=== PATIENT | male | born 1950 | race Caucasian/White ===

== ENCOUNTER 2022-01-27 07:28 | Day surgery (SDC) | payer MEDICARE, BC ==
[~2022-01-27] VITALS: Ht 177.8 cm; Wt 96.5 kg
[~2022-01-27 07:28] MED LIST: ALEVE220 MG PO; COUMADIN2.5 MG PO; DIAZEPAM5 MG PO; HYDROCODON-ACE1 EAC8 PO; OXYCODONE HCL5 MG PO; ZOFRAN ODT4 MG PO
--- NOTE | 2022-01-27 08:24 | NUR ---
PT ALERT, ORIENTED AND SUPPORTED BY HIS CANDACE SIMONS. ANXIOUS TIME SOMEWHAT FOR BOTH-PT HAS CANCER IN REMISSION AND FOLLOW UP. GAVE COMFORT AND BLESSING. OPHELIA ZHENG FINISHING PREP. WILL FOLLOW NEEDED
--- NOTE | 2022-01-27 09:25 | NUR ---
01/27/22 0925 Beatriz Mayes 0919 PT TO PACU ALERT AND AWAKE DENIES PAIN OR NAUSEA.
--- NOTE | 2022-01-28 21:47 | OR ---
[facility] [address] [place], [place] [address] Signed DATE OF OPERATION: 01/27/2022 SURGEON: Leeroy Chilel MD PREOPERATIVE DIAGNOSES: 1. History of cecal adenoma 2013. 2. 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 POSTOPERATIVE DIAGNOSIS: Diverticulosis sigmoid and left colon. No evidence of polyps. PROCEDURE: Total colonoscopy with visualization of cecum. ANESTHESIA: Intravenous sedation; fentanyl 100 mcg and Versed 4 mg. INDICATION: This 71-year-old white man is patient of ANA Townsend. He is known to me from the past having undergone colonoscopy in 2013, at which time he had a cecal adenoma which was excised. In the meantime, he has developed prostate cancer with bony mets and was treated primarily with hormonal manipulation. He is asymptomatic regarding the colon as well as his prostate cancer. He is admitted at this time to undergo surveillance colonoscopy. He understands the risk of bleeding, infection, and perforation. FINDINGS: The prep was good. Complete colonoscopy was undertaken, though full intubation of the cecum was not accomplished. On that basis, a "pullup" of cecal mucosa was undertaken to ascertain no sign of adenoma or other abnormality of the cecum proper. Diverticuli were the only finding. There was no sign of actual polyp. DESCRIPTION OF PROCEDURE: The patient was brought to the endoscopy suite and placed in lateral decubitus position, given intravenous sedation to the point of slurred speech and nystagmus. Digital rectal examination was normal. I did not palpate the prostate particularly. An Olympus video colonoscope was passed in the rectum and manipulated into the sigmoid and left colon where diverticula were noted. The scope was ultimately advanced past the hepatic flexure into the right colon. Various attempts to fully intubate the cecum were unsuccessful including abdominal wall stabilization and so on. The cecum was visible but not able to be intubated fully and on that basis a biopsy forcep was used to grasp Electronically Signed By: LEEROY CHILEL MD 01/28/22 7932 PATIENT NAME: SANDRA FLORES OPERATIVE REPORT DATE OF : 48 REPORT #: [id number] PHYSICIAN: LEEROY CHILEL MD PCP: YUSUF ELLER REPORT IS CONFIDENTIAL AND NOT TO BE RELEASED WITHOUT AUTHORIZATION [facility] [address] [place] [id number] Signed the mucosa of the cecum, elevated and showing no evidence of polyps or other abnormality. The scope was then withdrawn and examination throughout showed no sign of abnormality, only diverticula as previously noted. Retroflexed view was normal as well. The scope was removed and the patient was taken to the recovery room in good condition. CONCLUDING DIAGNOSIS: Diverticulosis. No sign of recurrent polyp. PLAN: Recommend repeat colonoscopy in 5 years if clinically appropriate in of his metastatic prostate cancer. MD OSCAR Saldaña/IRENE /[id number] cc: ANA Townsend Copies: YUSUF ELLER ~ Electronically Signed By: LEEROY CHILEL MD 01/28/22 2147 PATIENT NAME: SANDRA FLORES OPERATIVE REPORT DATE OF : 48 REPORT #: [id number] PHYSICIAN: LEEROY CHILEL MD PCP: YUSUF ELLER REPORT IS CONFIDENTIAL AND NOT TO BE RELEASED WITHOUT AUTHORIZATION
== END 2022-01-27 10:05 | disposition home or self-care (01) ==
LOC: DS 07:28 → OPS 07:28 → DS 07:31 → OPS 08:30
PROVIDERS: ATTEND Surgery
PROC: 0DJD8ZZ Inspection of Lower Intestinal Tract, Via Natural or Artificial Opening Endoscopic (ICD-10-PCS; principal; 2022-01-27 08:30)
DX: Z12.11 Encounter for screening for malignant neoplasm of colon (principal); C61 Malignant neoplasm of prostate; Z86.010 Personal history of colon polyps; Z86.16 Personal history of COVID-19; K57.30 Diverticulosis of large intestine without perforation or abscess without bleeding; C79.51 Secondary malignant neoplasm of bone
CPT/HCPCS: J0690; J2250; J3010; J7121

== ENCOUNTER 2024-04-04 21:57 | Emergency (ER) | payer MEDICARE, BC ==
[~2024-04-04] VITALS: Ht 177.8 cm; Wt 98.5 kg
[2024-04-04 22:53] LABS: INFLUENZA B NAA NEGATIVE (NEGATIVE); RESPIRATORY SYNCYTIAL VIR NAA NEGATIVE (NEGATIVE)
[2024-04-04 23:16] LABS: BASOPHILS 0.9 % (0-2); EOSINOPHILS 2.3 % (0-6); HEMOGLOBIN 11.2 g/dL (12.0-18.0); LYMPHOCYTES 14.1 % (24-44); MCH 31.3 (27-36); MCHC 33.9 g/dl (30-36); MCV 92.3 fl (81-99); MONOCYTES 10.7 % (0-12); PLATELET COUNT 168 K/uL (140-440); RBC 3.57 M/ul (4.3-5.7); RDW 14.7 (10.5-15.0)
[2024-04-04 23:28] LABS: ALBUMIN 2.8 g/dL (3.4-5.0); ALBUMIN/GLOBULIN RATIO 0.93 (1.1-2.4); ANION GAP 12.7 (7-21); BILIRUBIN, TOTAL 0.3 ng/dL (0.2-1.0); BUN/CREATININE RATIO 13.2 (6.0-28.6); CALCIUM 8.5 mg/dL (8.5-10.1); CREATININE, SERUM 1.06 mg/dL (0.70-1.30); POTASSIUM 3.7 mmol/L (3.5-5.1); PROTEIN, TOTAL 5.8 g/dL (6.4-8.2)
[2024-04-04] MEDS ORDERED: LISINOPRIL20 MG PO (23:29)
[2024-04-04] MEDS ORDERED: PRAZOSIN HCL5 MG PO (23:29)
[2024-04-04] MEDS ORDERED: PREDNISONE20 MG PO (23:29)
[2024-04-04] MEDS ORDERED: SUDAFED 12 HOU120 MG PO (23:40)
[2024-04-04] MEDS ORDERED: BENZONATATE100 MG PO (23:40)
[2024-04-04] MEDS ORDERED: PSEUDOEPHEDRINE HCL 30 MG TAB PO ONE (23:45)
[2024-04-04] MEDS ORDERED: ALBUTEROL SULFATE 8 GM HOME.PACK INH ONE (23:45)
[2024-04-04] MEDS ORDERED: methylPREDNISolone 4 MG HOME.PACK PO ONE (23:45)
[2024-04-04] MEDS ORDERED: GUAIFENESIN/CODEINE 60 ML HOME.PACK PO ONE (23:45)
[2024-04-04] MEDS ORDERED: INHALER, ASSIST DEVICES 1 EACH SPACER MISC ONE (23:45)
[2024-04-05 00:12] VITALS: BP 124/79
== END 2024-04-05 00:12 | disposition home or self-care (01) ==
LOC: ED 21:57
PROVIDERS: Family Medicine
DX: J40 Bronchitis, not specified as acute or chronic (principal); Z96.651 Presence of right artificial knee joint; Z88.0 Allergy status to penicillin; Z79.52 Long term (current) use of systemic steroids; Z79.899 Other long term (current) drug therapy; Z11.52 Encounter for screening for COVID-19
CPT/HCPCS: 36415; 71045; 80053; 85025; 87502; 99284-25; A9270; U0002

== ENCOUNTER 2025-01-31 12:29 | Emergency (ER) | payer MEDICARE, OTHER ==
[~2025-01-31] VITALS: Ht 177.8 cm; Wt 96.0 kg
[~2025-01-31 12:29] MED LIST changes: +BENZONATATE100 MG PO; +LISINOPRIL20 MG PO; +PRAZOSIN HCL5 MG PO; +PREDNISONE20 MG PO; +SUDAFED 12 HOU120 MG PO
[2025-01-31] MEDS ORDERED: ABIRATERONE AC500 MG PO (12:40)
[2025-01-31] MEDS ORDERED: PREDNISONE5 MG PO (12:40)
[2025-01-31] MEDS ORDERED: NITROGLYCERIN 0.4 MG SUBL SL PRN (12:45)
[2025-01-31] MEDS ORDERED: ASPIRIN 81 MG CHEW PO ONE (12:45)
[2025-01-31 13:01] LABS: BASOPHILS 0.9 % (0.2-1.2); EOSINOPHILS 2.4 % (0.8-7.0); LYMPHOCYTES 22.2 % (21.8-53.1); MCH 32.0 PG (25.7-32.2); MCHC 34.8 g/dL (32.3-36.5); MCV 92.0 fL (79.0-92.2); MONOCYTES 10.6 % (5.3-12.2); NEUTROPHILS 63.0 % (34.0-67.9); RBC 3.75 M/uL (4.63-6.08)
[2025-01-31 13:10] LABS: ALT (SGPT) 18.0 U/L (14-59); AST (SGOT) 15.0 U/L (15-37); GLOMERULAR FILTRATION RATE,EST 77.0 mL/min (>60); PROTEIN, TOTAL 6.3 g/dL (6.4-8.2); UREA NITROGEN 17.0 mg/dL (7-18)
[2025-01-31 15:22] VITALS: BP 167/102
--- NOTE | 2025-01-31 23:32 | EKG ---
[facility] [address] [facility] [place] [address] Signed Sinus bradycardia Otherwise normal ECG No previous ECGs available Confirmed by Elijah Olivares MD () on 01/31/2025 11:32:22 PM Electronically Signed By: ELIJAH OLIVARES MD 01/31/25 [facility] PATIENT NAME: SANDRA FLORES Electrocardiogram DATE OF : 48 PHYSICIAN: ELIJAH OLIVARES MD REPORT #: [id number] REPORT IS CONFIDENTIAL AND NOT TO BE RELEASED WITHOUT AUTHORIZATION
== END 2025-01-31 15:24 | disposition home or self-care (01) ==
LOC: ED 12:29
PROVIDERS: Emergency Medicine
DX: R07.9 Chest pain, unspecified (principal); I10 Essential (primary) hypertension; Z88.0 Allergy status to penicillin; Z79.899 Other long term (current) drug therapy
CPT/HCPCS: 36415; 71045; 80053; 83735; 84484; 85025; 93005; 93010; 99285-25; A9270